=== PATIENT | female | born 1975 | race Two or more races ===

== ENCOUNTER → 2024-11-22 | Outpatient (CLI) | payer BC, SELFPAY ==
--- NOTE | 2024-11-22 14:45 | XR_ITS ---
Examination: MRI brain without intravenous contrast. Date and time of exam: November 22, 2024 1509 hours INDICATIONS: Headaches beginning 6 months ago Technique: Multiple axial and sagittal images of the brain obtained. Siemens high-resolution 1.5 Sury short bore scanners utilized. Sagittal sections, T1-weighted, TR 500, TE 14, are performed. Axial sections proton-density and T2-weighted have been obtained. Inversion recovery axial images, TR 9, 260, TE 111, TI 2500. Diffusion weighted images, axial sections, TR 4800, TE 128, B value 1000 Axial sections, ADC map, TR 4800, TE 128 Findings: Enlargement of the sella turcica is not present. The optic chiasm and infundibular are not remarkable. Prepontine and interpeduncular cisterns are not enlarged. There is no localized enlargement of the medulla or vera. Fourth ventricle and cerebellar tonsils appear normal in position. No subacute area of hemorrhage density is seen. Mass in the cerebellopontine angle region is not evident. Globes symmetrical. Orbital musculature including medial lateral rectus muscles do not exhibit abnormality. Diffusion-weighted images demonstrate no focus of restricted diffusion. Increased white matter signal not seen Mass effect upon the ventricular system is not identified. Impression: Negative for acute hemorrhage mass effect or midline shift No acute infarct No MR findings diagnostic for demyelinating disease Chronic ethmoid sinusitis
--- NOTE | 2024-11-22 15:15 | XR_ITS ---
Examination: MRI orbits face neck, without intravenous contrast. Exam date and time: November 22, 2024 1531 hours INDICATIONS: Left-sided palpable lymph node masses enter to touch 3 years Technique: Multiple axial, sagittal and coronal images of the orbits face neck have been obtained with the Siemens high-resolution 1.5 Sury MRI scanner. Images obtained included T2 weighted fat suppressed sagittal sections, TR 3500, TE 46, T2 weighted coronal fat suppressed images, TR 3050, TE 84, T2-weighted transverse fat suppressed images, TR 30-60, TE 63, proton density transverse images, TR 4720, TE 46, and T1 weighted coronal images, TR 560, TE 13. Findings: Bilateral carotid triangle lymph nodes, the largest on the left side 11 mm, on the right side 8 mm Multiple submental lymph nodes, the largest is on the right side 6 mm Posterior cervical bilateral lymph nodes, the largest on the right side 9 mm No oropharyngeal or nasopharyngeal mass The larynx appears normal Normal epiglottis No prevertebral soft tissue prominence Adequate alignment cervical vertebral bodies IMPRESSION: Cervical lymphadenopathy as above, suggest 3 month follow-up CT soft tissue neck post intravenous contrast
== END | disposition home or self-care (01) ==
LOC: SMRI 14:25
PROVIDERS: PCP Nurse Practitioner Family; Referring Provider Nurse Practitioner Family; Visit Provider Nurse Practitioner Family
DX: J32.2 Chronic ethmoidal sinusitis (principal); R59.0 Localized enlarged lymph nodes
CPT/HCPCS: 70540; 70551